=== PATIENT | female | born 1980 | race African-American/Black ===

== ENCOUNTER 2020-06-04 06:18 | Inpatient (IN) ==
[2020-06-04] MEDS ORDERED: *HR* LORazepam 2 MG/ML VIAL IM PRN (08:44)
[2020-06-04] MEDS ORDERED: haloperidoL 5 MG TABLET PO PRN (08:44)
[2020-06-04] MEDS ORDERED: hydrOXYzine pamoate 25 MG CAPSULE PO PRN (08:44)
[2020-06-04] MEDS ORDERED: MOM Conc 10 ML UD.LIQ PO PRN (08:44)
[2020-06-04] MEDS ORDERED: QUEtiapine Fumarate 25 MG TABLET PO PRN (08:44)
[2020-06-04] MEDS ORDERED: Mag Hydrox/Al Hydrox/Simeth 30 ML UDC PO PRN (08:44)
[2020-06-04] MEDS ORDERED: *HR* LORazepam 1 MG TABLET PO PRN (08:44)
[2020-06-04] MEDS ORDERED: Haloperidol Lactate 5 MG/ML VIAL IM PRN (08:44)
[2020-06-04] MEDS: Acetaminophen 325 MG TABLET PO PRN ×2 (15:23→20:40)
[2020-06-05] MEDS: Acetaminophen 325 MG TABLET PO PRN ×2 (06:14→12:45)
[2020-06-06 11:26] VITALS: BP 121/83
== END 2020-06-06 17:35 | disposition home or self-care (01) | DRG 885 ==
LOC: EMEROOARM 06:18 → 1ANU 08:43
PROVIDERS: ADMIT Psychiatry & Neurology Forensic Psychiatry; ATTEND Psychiatry & Neurology Forensic Psychiatry